=== PATIENT | female | born 1965 | race Asian ===

== ENCOUNTER 2018-03-11 19:48 | Emergency (ER) | payer OTHER ==
[~2018-03-11] VITALS: Ht 149.9 cm; Wt 66.5 kg
[2018-03-11] MEDS ORDERED: SODIUM CHLORIDE FLUSH 10ML SYR IVF ONE (20:30)
[2018-03-11] MEDS ORDERED: LISI-167 PO (20:42)
[2018-03-11] MEDS ORDERED: METF500T17 PO (20:42)
[2018-03-11] MEDS ORDERED: METH750T2 PO (20:42)
[2018-03-11] MEDS ORDERED: MELO15TA24 PO (20:42)
[2018-03-11] MEDS ORDERED: GLIP5TAB10 PO (20:42)
[2018-03-11] MEDS ORDERED: BISO10TA PO (20:42)
[2018-03-11] MEDS ORDERED: ATOR20TA37 PO (20:42)
[2018-03-11 20:48] VITALS: BP 114/67
[2018-03-11 21:00] LABS: BASOPHILS # (AUTO) 0.04 x10^3/uL (0-0.1); BASOPHILS % (AUTO) 0 % (0-1); EOSINOPHILS # (AUTO) 0.35 x10^3/uL (0-0.4); EOSINOPHILS % (AUTO) 3 % (1-7); LYMPHOCYTES # (AUTO) 3.71 x10^3/uL (1-3.4); LYMPHOCYTES % (AUTO) 30 % (22-44); MD NO; MEAN CORPUSCULAR HEMOGLOBIN 28.9 pg (27.0-34.8); MEAN CORPUSCULAR HGB CONC 33.3 g/dL (32.4-35.8); MEAN CORPUSCULAR VOLUME 86.9 fL (80-100); MEAN PLATELET VOLUME 10.8 fL (7.4-10.4); MONOCYTES % (AUTO) 8 % (2-9); NEUTROPHILS # (AUTO) 7.31 x10^3/uL (1.8-6.8); NEUTROPHILS % (AUTO) 59 % (42-75); PLATELET COUNT 217 x10^3/uL (130-400); RED BLOOD COUNT 5.31 x10^6/uL (3.82-5.3); RED CELL DISTRIBUTION WIDTH 12.5 % (9.6-15.2)
[2018-03-11 21:10] LABS: MICROSCOPIC NOT IND
[2018-03-11 21:11] LABS: ALBUMIN 3.6 g/dL (3.4-5.0); ANION GAP 8 mmol/L (5-15); CALCIUM 9.8 mg/dL (8.5-10.1); CHLORIDE 106 mmol/L (98-107)
[2018-03-11 21:14] LABS: CULTURE INDICATED? NO
[2018-03-11 21:18] LABS: ALANINE AMINOTRANSFERASE 29 U/L (12-78); ALKALINE PHOSPHATASE 95 U/L (45-117); BILIRUBIN,TOTAL 0.4 mg/dL (0.2-1.0); CREATININE 0.85 mg/dL (0.55-1.02); TOTAL PROTEIN 7.9 g/dL (6.4-8.2); TROPONIN I < 0.015 ng/mL (0.000-0.045)
== END 2018-03-11 22:22 | disposition home or self-care (01) ==
LOC: ED 21:57
DX: R07.2 Precordial pain (principal); R06.00 Dyspnea, unspecified; R42 Dizziness and giddiness; M54.9 Dorsalgia, unspecified; G89.29 Other chronic pain; E78.00 Pure hypercholesterolemia, unspecified; E11.9 Type 2 diabetes mellitus without complications; I10 Essential (primary) hypertension; Z86.73 Personal history of transient ischemic attack (TIA), and cerebral infarction without residual deficits
CPT/HCPCS: 36415; 71045; 80053; 81003; 84484; 85025; 93005; 99284

== ENCOUNTER 2019-04-04 10:14 | Emergency (ER) | payer OTHER ==
[~2019-04-04] VITALS: Ht 152.4 cm; Wt 68.6 kg
[~2019-04-04 10:14] MED LIST: ATOR20TA37 PO; BISO10TA PO; GLIP5TAB10 PO; LISI-167 PO; MELO15TA24 PO; METF500T17 PO; METH750T2 PO
[2019-04-04] MEDS ORDERED: ASPIRIN 81 MG TABLET CHEW PO ONE (11:00)
--- NOTE | 2019-04-04 11:18 | NUR ---
PT HAS CO SOB, DIZZYNESS, N/V SINCE LAST NIGHT. STATES CHEST PAIN COMES AND GOES W DEEP BREATHING. PT STATES SON IN LAW HAD FLU RECENTLY. PRIMARY MD DAMICO WAS TOLD TO COME TO ED. PT RESPIRATIONS EVEN AND UNLABORED. VS STABLE .NO NEEDS AT THIS TIME. MD AT BEDSIDE.
[2019-04-04 11:28] LABS: BASOPHILS # (AUTO) 0.04 x10^3/uL (0-0.1); BASOPHILS % (AUTO) 0 % (0-1); EOSINOPHILS # (AUTO) 0.38 x10^3/uL (0-0.4); EOSINOPHILS % (AUTO) 5 % (1-7); LYMPHOCYTES # (AUTO) 2.54 x10^3/uL (1-3.4); LYMPHOCYTES % (AUTO) 30 % (22-44); MD NO; MEAN CORPUSCULAR HEMOGLOBIN 28.8 pg (27.0-34.8); MEAN CORPUSCULAR HGB CONC 33.6 g/dL (32.4-35.8); MEAN CORPUSCULAR VOLUME 85.6 fL (80-100); MEAN PLATELET VOLUME 9.8 fL (7.4-10.4); MONOCYTES # (AUTO) 0.67 x10^3/uL (0.2-0.8); MONOCYTES % (AUTO) 8 % (2-9); NEUTROPHILS # (AUTO) 4.85 x10^3/uL (1.8-6.8); NEUTROPHILS % (AUTO) 57 % (42-75); PLATELET COUNT 252 x10^3/uL (130-400); RED BLOOD COUNT 4.92 x10^6/uL (3.82-5.3); RED CELL DISTRIBUTION WIDTH 13.6 % (9.6-15.2)
[2019-04-04 11:34] LABS: ALBUMIN 3.7 g/dL (3.4-5.0); ANION GAP 7 mmol/L (5-15); CALCIUM 9.4 mg/dL (8.5-10.1); CHLORIDE 107 mmol/L (98-107)
[2019-04-04 11:40] LABS: ALANINE AMINOTRANSFERASE 46 U/L (12-78); ALKALINE PHOSPHATASE 108 U/L (45-117); BILIRUBIN,TOTAL 0.4 mg/dL (0.2-1.0); TOTAL PROTEIN 8.2 g/dL (6.4-8.2); TROPONIN I < 0.015 ng/mL (0.000-0.045)
[2019-04-04] MEDS ORDERED: ASPIRIN 81 MG TABLET CHEW ONE (11:56)
[2019-04-04] MEDS ORDERED: ONDANSETRON ODT 4 MG ONE (11:59)
[2019-04-04] MEDS ORDERED: MECLIZINE CHEWABLE 25 MG TAB ONE (11:59)
[2019-04-04] MEDS ORDERED: ONDANSETRON ODT 4 MG PO ONE (12:00)
[2019-04-04] MEDS ORDERED: MECLIZINE CHEWABLE 25 MG TAB PO ONE (12:00)
--- NOTE | 2019-04-04 12:06 | NUR ---
medicated per orders. pt vss. no needs at this time. denies cp or sob
[2019-04-04 12:26] VITALS: BP 124/71
--- NOTE | 2019-04-04 12:53 | NUR ---
Patient/Caregiver given discharge instructions and they have confirmed that they understand the instructions. Patient ambulatory with steady gait.
== END 2019-04-04 13:04 | disposition home or self-care (01) ==
LOC: ED 12:58
DX: J02.8 Acute pharyngitis due to other specified organisms (principal); H81.10 Benign paroxysmal vertigo, unspecified ear; B97.89 Other viral agents as the cause of diseases classified elsewhere; I10 Essential (primary) hypertension; E11.9 Type 2 diabetes mellitus without complications; Z86.73 Personal history of transient ischemic attack (TIA), and cerebral infarction without residual deficits
CPT/HCPCS: 36415; 71046; 80053; 84484; 85025; 93005; 99285; Q0162

== ENCOUNTER 2019-07-07 13:08 | Emergency (ER) | payer OTHER ==
[~2019-07-07] VITALS: Ht 152.4 cm; Wt 70.7 kg
[2019-07-07 14:15] LABS: BASOPHILS # (AUTO) 0.06 x10^3/uL (0-0.1); BASOPHILS % (AUTO) 1 % (0-1); EOSINOPHILS # (AUTO) 0.42 x10^3/uL (0-0.4); EOSINOPHILS % (AUTO) 5 % (1-7); LYMPHOCYTES # (AUTO) 2.98 x10^3/uL (1-3.4); LYMPHOCYTES % (AUTO) 32 % (22-44); MD NO; MEAN CORPUSCULAR HEMOGLOBIN 28.9 pg (27.0-34.8); MEAN CORPUSCULAR HGB CONC 33.8 g/dL (32.4-35.8); MEAN CORPUSCULAR VOLUME 85.5 fL (80-100); MONOCYTES % (AUTO) 11 % (2-9); NEUTROPHILS # (AUTO) 4.93 x10^3/uL (1.8-6.8); NEUTROPHILS % (AUTO) 53 % (42-75); PLATELET COUNT 221 x10^3/uL (130-400); RED CELL DISTRIBUTION WIDTH 13.5 % (9.6-15.2)
[2019-07-07 14:28] LABS: ALBUMIN 3.4 g/dL (3.4-5.0); ANION GAP 6 mmol/L (5-15); CALCIUM 8.8 mg/dL (8.5-10.1); CHLORIDE 110 mmol/L (98-107); CREATININE 0.77 mg/dL (0.55-1.02)
[2019-07-07 14:46] VITALS: BP 168/81
--- NOTE | 2019-07-07 14:47 | NUR ---
PT CAME IN CO OF RIGHT HAND SWELLING AND PAIN. PT DENIES TRAUMA, LONG CAR RIDES, OR HISTORY OF DVT. ACCOMPANIED BY DAUGHTER.
== END 2019-07-07 16:16 | disposition home or self-care (01) ==
LOC: ED 14:43
DX: M10.041 Idiopathic gout, right hand (principal); M13.111 Monoarthritis, not elsewhere classified, right shoulder; I10 Essential (primary) hypertension; E11.9 Type 2 diabetes mellitus without complications
CPT/HCPCS: 36415; 80048; 82040; 84550; 85025; 99285